=== PATIENT | male | born 1980 | race Hispanic/Latino ===

== ENCOUNTER 2018-12-31 18:46 | Emergency (ER) | payer OTHER, SELFPAY ==
[2018-12-31] MEDS ORDERED: Acetaminophen 500 MG TAB ONE (20:36)
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
== END 2018-12-31 21:23 | disposition home or self-care (01) ==
LOC: ERS 18:46
DX: S13.4XXA Sprain of ligaments of cervical spine, initial encounter (principal); V89.2XXA Person injured in unspecified motor-vehicle accident, traffic, initial encounter
CPT/HCPCS: 72125; 72131